=== PATIENT | female | born 1990 | race Caucasian/White ===

== ENCOUNTER → 2018-11-03 | Outpatient (CLI) | payer OTHER ==
--- NOTE | 2018-11-03 17:58 | REP ---
MRI RIGHT FOOT: TECHNIQUE: Multiple sequences obtained in the axial, coronal and sagittal planes. The osseous structures of the right foot demonstrate normal bone marrow signal. There is no bone marrow edema or occult fracture. There is no evidence of osteomyelitis. Flexor and extensor tendons appear intact with no evidence of tenosynovitis. Tendons and ligaments at the ankle also appear intact. There is mild scattered normal amount of joint fluid. Reportedly the patient had a foreign body in the medial soft tissues which was removed and there is a palpable lump and pain at that location. At that location, which is marked on the skin, there is scattered mild subcutaneous edema. No fluid collection or other abnormality is seen. IMPRESSION: At the site of the removed foreign body where there is pain and swelling, there is subcutaneous edema. No fluid collection or other abnormality is seen. Electronically Signed by Jaden Cuadra MD 11/05/2018 04:32 P
== END ==
LOC: M RAD 16:13
PROVIDERS: ATTEND Podiatrist Foot & Ankle Surgery
DX: M25.571 Pain in right ankle and joints of right foot (principal)

== ENCOUNTER 2019-06-03 02:38 | Inpatient (IN) | payer OTHER ==
[~2019-06-03] VITALS: Ht 157.5 cm; Wt 85.9 kg
[2019-06-03] MEDS ORDERED: LORazepam 2 MG/ML VIAL (J2060) As Ordered ONE (02:41)
[2019-06-03] MEDS ORDERED: HALOPERIDOL 5MG/ML VIAL (J1630 PER 1) As Ordered ONE (02:41)
[2019-06-03] MEDS ORDERED: diphenhydrAMINE 50MG/ML VIAL (J1200) As Ordered ONE (02:41)
[2019-06-03] MEDS ORDERED: LORazepam 2 MG/ML VIAL (J2060) IM ONE (02:45)
[2019-06-03] MEDS ORDERED: HALOPERIDOL 5MG/ML VIAL (J1630 PER 1) IM ONE (02:45)
[2019-06-03] MEDS ORDERED: diphenhydrAMINE 50MG/ML VIAL (J1200) IM ONE (02:45)
--- NOTE | 2019-06-03 03:24 | REP ---
Clinical: Trauma. Laceration. Technique: AP and oblique views of the right fourth and fifth digits. Findings: Evaluation is significantly limited by partially opacified overlying bandage material. No obvious metallic foreign body identified. The osseous structures are grossly intact. Impression: Limited examination. No obvious foreign body or osseous abnormality. Electronically Signed by Javier Mckinney MD 06/03/2019 03:15 A
[2019-06-03 03:34] LABS: HEMATOCRIT 38.5 % (36.0-47.0); HEMOGLOBIN 12.2 g/dl (12.0-15.5); MEAN CORPUSCULAR HEMOGLOBIN 27.6 pg (27.0-33.0); MEAN CORPUSCULAR HGB CONC 31.7 g/dl (32.0-36.5); MEAN CORPUSCULAR VOLUME 87.1 fl (80.0-96.0); PLATELET COUNT, AUTOMATED 328 10^3/uL (150-450); RED BLOOD COUNT 4.42 10^6/uL (4.00-5.40); WHITE BLOOD COUNT 9.5 10^3/uL (4.0-10.0)
[2019-06-03 03:49] LABS: HCG, SERUM QUALITATIVE NEGATIVE (NEGATIVE)
[2019-06-03] MEDS ORDERED: NS 1,000 ML IV ONE ×2 (04:30→06:30)
[2019-06-03 04:46] LABS: ACETAMINOPHEN LEVEL < 2.0 UG/ML (10.0-30.0); ALBUMIN 3.9 GM/DL (3.2-5.2); ALT/SGPT 23 U/L (12-78); BILIRUBIN,DIRECT < 0.1 MG/DL (0.0-0.2); BILIRUBIN,TOTAL 0.3 MG/DL (0.2-1.0); BLOOD UREA NITROGEN 15 MG/DL (7-18); CALCIUM LEVEL 8.1 MG/DL (8.5-10.1); CARBON DIOXIDE LEVEL 18 MEQ/L (21-32); CHLORIDE LEVEL 113 MEQ/L (98-107); CREATININE FOR GFR 0.67 MG/DL (0.55-1.30); GLOMERULAR FILTRATION RATE > 60.0 (>60); GLUCOSE, FASTING 103 MG/DL (70-100); POTASSIUM SERUM 3.9 MEQ/L (3.5-5.1); SALICYLATE LEVEL 3.9 MG/DL (5.0-30.0); SODIUM LEVEL 142 MEQ/L (136-145); TOTAL PROTEIN 7.1 GM/DL (6.4-8.2)
[2019-06-03 05:21] LABS: AMPHETAMINES LEVEL URINE NEGATIVE (NEGATIVE); BARBITURATES URINE NEGATIVE (NEGATIVE); BENZODIAZEPINES URINE NEGATIVE (NEGATIVE); CANNABINOIDS URINE NEGATIVE (NEGATIVE); COCAINE METABOLITE URINE NEGATIVE (NEGATIVE); METHADONE URINE NEGATIVE (NEGATIVE); OPIATES URINE NEGATIVE (NEGATIVE); PHENCYCLIDINE URINE NEGATIVE (NEGATIVE)
[2019-06-03] MEDS ORDERED: BOOSTRIX/ADACEL VACCINE (DIPHTH/PERTUSS/ACELL/TETANUS) 0.5ML SYR IM ONE (08:15)
[2019-06-03] MEDS ORDERED: ceFAZolin SOD 1 GM in D5W MINI-BAG PLUS 50 ML IV ONE (08:15)
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
[2019-06-03] MEDS ORDERED: ACETAMINOPHEN TAB 650MG DOSE (2X325MG) PO PRN (09:00)
[2019-06-03] MEDS ORDERED: ONDANSETRON 4MG/2ML VIAL (J2405 PER 1MG) IV PRN (09:00)
[2019-06-03] MEDS ORDERED: BISACODYL 10 MG SUPP PR PRN (09:00)
[2019-06-03] MEDS: NS 1,000 ML IV SCH ×2 (09:21→12:03)
[2019-06-03] MEDS: NORCO, ANEXSIA 5/325MG TABLET (HYDROcodone/ACETAMINOPHEN) PO PRN (12:02)
[2019-06-03] MEDS: ceFAZolin SOD 1 GM in D5W MINI-BAG PLUS 50 ML IV SCH (15:11)
[2019-06-03] MEDS ORDERED: BUPIVACAINE/EPIN 0.25% 30 ML VIAL As Ordered ONE (17:03)
[2019-06-03] MEDS ORDERED: fentaNYL 250 MCG/5 ML INJECTION (J3010) As Ordered ONE (18:34)
[2019-06-03] MEDS ORDERED: propofoL 200 MG/20 ML VIAL As Ordered ONE ×2 (18:35→21:02)
[2019-06-03] MEDS ORDERED: MIDAZOLAM INJ 2MG/2ML VIAL (J2250 PER 1MG) As Ordered ONE (18:35)
[2019-06-03] MEDS ORDERED: LIDOCAINE 2% 100MG/5ML SDV (FOR ANES.) As Ordered ONE (18:35)
[2019-06-03] MEDS ORDERED: ONDANSETRON 4MG/2ML VIAL (J2405 PER 1MG) As Ordered ONE (18:35)
[2019-06-03] MEDS ORDERED: dexameTHASONE 4 MG/ML 1ML VIAL (J1100 PER 1MG) As Ordered ONE (18:35)
[2019-06-03] MEDS ORDERED: ceFAZolin 2 GM/D5W 50 ML IV BAG (J0690 PER 500MG) As Ordered ONE (19:06)
[2019-06-03] MEDS ORDERED: ACETAMINOPHEN 1000MG 100ML IV BTL (OFIRMEV) (J0131 PER 10MG) As Ordered ONE (19:35)
[2019-06-03] MEDS ORDERED: HYDROmorphone HCL 2 MG/ML 1ML VIAL (J1170) As Ordered ONE (20:25)
[2019-06-03] MEDS ORDERED: KETAMINE HCL 200 MG/20 ML VIAL As Ordered ONE (20:56)
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
[2019-06-03 23:02] VITALS: BP 160/95
[2019-06-03 23:14] VITALS: BP 157/94
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
[2019-06-04] VITALS (7 sets, daily range): BP systolic 129–160; BP diastolic 75–106
[2019-06-04] MEDS ORDERED: oxyCODONE 5MG TAB PO PRN
[2019-06-04] MEDS ORDERED: fentaNYL 100 MCG/2 ML INJECTION (J3010) IV PRN
[2019-06-04] MEDS ORDERED: HYDROMORPHONE HCL 0.5 MG/ 0.5 ML SYRINGE (J1170 PER 1) IV PRN
[2019-06-04] MEDS ORDERED: LR 1,000 ML IV SCH
[2019-06-04] MEDS: NORCO, ANEXSIA 5/325MG TABLET (HYDROcodone/ACETAMINOPHEN) PO PRN ×3 (00:03→13:20)
[2019-06-04] MEDS: ceFAZolin SOD 1 GM in D5W MINI-BAG PLUS 50 ML IV SCH ×3 (00:51→08:21)
[2019-06-04] MEDS: NS 1,000 ML IV SCH ×2 (00:52→08:52)
[2019-06-04] MEDS ORDERED: OXYC-517 PO (07:07)
[2019-06-04] MEDS ORDERED: KEFL500C17 PO (07:07)
--- NOTE | 2019-06-04 15:21 | IPN ---
DATE: 06/04/2019 CHIEF COMPLAINT: Postop day #1 right hand laceration repair. HISTORY OF PRESENT ILLNESS: This is a 28-year-old female seen today on postop day #[address] Toribio performing surgery on her right hand. She is doing well and comfortable. No concerns from her or the nursing staff. PHYSICAL EXAMINATION: Well-appearing 28-year-old female. Vital signs are stable aside from an increased heart rate of 117. The splint is in situ, fingers are flexed down. The platysmal fingers on the fifth digit are a little bit numb, but warm and pink with good capillary refill under 3 seconds. ASSESSMENT AND PLAN: I have talked to Dr. Kraft, psychiatrist conduit bender, who has agreed to see and assess the patient through video means later on today as the nurse in the emergency department had stated the patient was having suicidal ideation and perhaps that is why she had self inflicted the laceration to her hand. If in their opinion the patient is safe to be discharged home, then, per orthopedics, the patient is to be safe to be discharged home and followup with Dr. Toribio in the office. I have let the nurses, as well as Dr. Kraft and Dr. Toribio know of the plan.
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
== END 2019-06-04 17:30 | disposition home or self-care (01) | DRG 364 ==
LOC: M ED 02:38 → M ED INP 08:52 → ENRESERV 09:53 → M MS5PR 11:39
PROVIDERS: ADMIT Orthopaedic Surgery Sports Medicine; ATTEND Orthopaedic Surgery Sports Medicine
PROC: 0LQ70ZZ Repair Right Hand Tendon, Open Approach (ICD-10-PCS; 2019-06-03)
PROC: 01Q40ZZ Repair Ulnar Nerve, Open Approach (ICD-10-PCS; principal; 2019-06-03 18:30)
DX: S61.216A Laceration without foreign body of right little finger without damage to nail, initial encounter (principal); S66.129A Laceration of flexor muscle, fascia and tendon of unspecified finger at wrist and hand level, initial encounter; S64.01XA Injury of ulnar nerve at wrist and hand level of right arm, initial encounter; Z88.8 Allergy status to other drugs, medicaments and biological substances; X78.8XXA Intentional self-harm by other sharp object, initial encounter; Y92.009 Unspecified place in unspecified non-institutional (private) residence as the place of occurrence of the external cause; F31.9 Bipolar disorder, unspecified; F10.129 Alcohol abuse with intoxication, unspecified